=== PATIENT | female | born 1980 | race Caucasian/White ===

== ENCOUNTER 2016-10-12 18:26 | Emergency (ER) | payer OTHER ==
[~2016-10-12] VITALS: Ht 170.2 cm; Wt 58.0 kg
[~2016-10-12 18:26] MED LIST: BUTA1CAP PO; DIAZ5 PO; PERC5TAB12 PO
[2016-10-12 18:40] VITALS: BP 96/58; PULSE 80; RESP 18; TEMP 98.9; O2SAT 100
[2016-10-12 18:50] LABS: BLOOD, URINE NEG (NEG); GLUCOSE,URINE NEG (NEG); KETONE, URINE 15 mg/dL (NEG); PH, URINE 6.5 (5.0-8.5)
[2016-10-12] MEDS ORDERED: TRAM50TA PO (18:54)
--- NOTE | 2016-10-12 18:55 | PD ---
HPI Chief Complaint: Complaint Time Seen by Provider: 18:52 Travel History International Travel<30 days: No Contact w/Intl Traveler<30days: No Traveled to known affect area: No History of Present Illness HPI 36-year-old female is complaining that she is unable to void and she has severe pain when she does void. She has a history of urinary tract infections. She was treated for one on October 01. She thinks she took Macrobid. She takes tramadol for back and knee pain. She is now having severe pain in the pubic area. She says there is no chance of . She did have some right flank pain earlier. She says the discomfort she is having is quite severe. SHe did take some antibiotics that she had at home PFSH Past Medical History Hx Anticoagulant Therapy: No Anxiety: Yes Depression: Yes Cardiovascular Problems: No Chemotherapy: No Cerebrovascular Accident: No Diabetes: No Diminished Hearing: No Reproductive: Yes (OVARIAN CYSTS) Respiratory: No Immunizations Current: Yes Migraines: Yes Tetanus Vaccination: < 5 Years Influenza Vaccination: Yes ?: Not : 1 Para: 1 Dilation and Curettage (D&C): Yes Past Surgical History Section: Yes Cholecystectomy: Yes Hysterectomy: No Other Surgery: Yes (DOUBLE INGUINAL HERNIA REPAIRS) Social History Alcohol Use: No Tobacco Use: No (quit jul 30, 2013) Substance Use: No Allergies-Medications (Allergen,Severity, Reaction): Coded Allergies: Compazine (Verified Allergy, Severe, HEART PROBLEMS, 10/12/16) Codeine (Verified Allergy, Mild, 10/12/16) PT DENIES ALLERGY Darvocet-N 100 (Verified Allergy, Mild, RASH, 10/12/16) Penicillin (Verified Allergy, Mild, RASH, 10/12/16) Reglan (Verified Allergy, Mild, HEART PROBLEMS, 10/12/16) Sulfa (Verified Allergy, Mild, RASH, 10/12/16) Reported Meds & Prescriptions Reported Meds & Active Scripts Active Reported Tramadol (Tramadol HCl) 50 Mg Tab 100 Mg PO Q6H PRN Fioricet (Znhkshuwdn-Cxqpbwmtzgvcr-Vebtuevj) 50-300-40 Mg Cap 1-2 Cap PO Q6H PRN Valium (Diazepam) 5 Mg Tab 5 Mg PO TID PRN Review of Systems General / Constitutional: No: Fever, Chills Eyes: No: Diploplia HENT: No: Headaches, Vertigo Cardiovascular: No: Chest Pain or Discomfort Respiratory: No: Cough, Shortness of Breath Gastrointestinal: No: Nausea, Vomiting Genitourinary: Positive: Frequency, Dysuria, Pelvic Pain Musculoskeletal: Positive: Pain, No: Myalgias Skin: No Rash Neurologic: No: Weakness Hematologic/Lymphatic: No: Easy Bruising Physical Exam Narrative GENERAL: Well-developed female. She is complaining of quite severe pain in the pelvic area SKIN: Focused skin assessment warm/dry. HEAD: Atraumatic. Normocephalic. EYES: Pupils equal and round. No scleral icterus. No injection or drainage. ENT: No nasal bleeding or discharge. Mucous membranes pink and moist. NECK: Trachea midline. No JVD. CARDIOVASCULAR: Regular rate and rhythm. No murmur appreciated. RESPIRATORY: No accessory muscle use. Clear to auscultation. Breath sounds equal bilaterally. GASTROINTESTINAL: Abdomen soft, non-tender, nondistended. Hepatic and splenic margins not palpable. Pelvic: There is slight discharge is no pain with movement of the cervix. There are no adnexal masses felt MUSCULOSKELETAL: No obvious deformities. No clubbing. No cyanosis. No edema. NEUROLOGICAL: Awake and alert. No obvious cranial nerve deficits. Motor grossly within normal limits. Normal speech. PSYCHIATRIC: Appropriate mood and affect; insight and judgment normal. Data Data Last Documented VS Vital Signs Date Time Temp Pulse Resp B/P Pulse Ox O2 Delivery O2 Flow Rate FiO2 10/12/16 22:00 95 16 133/70 97 Room Air 10/12/16 18:40 98.9 Orders Urinalysis - C+S If Indicated (10/12/16 18:31) Ed Urine Pregnancytest Poc (10/12/16 18:31) Complete Blood Count With Diff (10/12/16 18:52) Basic Metabolic Panel (Bmp) (10/12/16 18:52) Ondansetron Inj (Zofran Inj) (10/12/16 19:00) Hydromorphone Pf Inj (Dilaudid Pf Inj) (10/12/16 19:00) Ceftriaxone Inj (Rocephin Inj) (10/12/16 19:00) Phenazopyridine (Pyridium) (10/12/16 19:00) Urine Culture (10/12/16 18:39) Hydromorphone Pf Inj (Dilaudid Pf Inj) (10/12/16 20:30) Ct Abd/Pel W/O Iv Contrast (10/12/16 20:23) Gc And Chlamydia Pcr (10/12/16 20:49) Wet Prep Profile (10/12/16 20:49) Ketorolac Inj (Toradol Inj) (10/12/16 21:45) Labs Laboratory Tests Test 10/12/16 10/12/16 10/12/16 18:39 19:05 20:30 Urine Color BROWN Urine Turbidity CLEAR Urine pH 6.5 Urine Specific [place] 1.031 Urine Protein 30 mg/dL Urine Glucose (UA) NEG mg/dL Urine Ketones 15 mg/dL Urine Occult Blood NEG Urine Nitrite POS Urine Bilirubin NEG Urine Leukocyte Esterase NEG Urine WBC 0-2 /hpf Urine Squamous Epithelial 0-5 /hpf Cells Urine Calcium Oxalate Crystals MOD /hpf Urine Bacteria FEW /hpf Urine Mucus MOD /lpf Microscopic Urinalysis Comment CULTURE INDICATED White Blood Count 6.7 TH/MM3 Red Blood Count 4.76 MIL/MM3 Hemoglobin 14.0 GM/DL Hematocrit 41.6 % Mean Corpuscular Volume 87.2 FL Mean Corpuscular Hemoglobin 29.4 PG Mean Corpuscular Hemoglobin 33.7 % Concent Red Cell Distribution Width 12.4 % Platelet Count 197 TH/MM3 Mean Platelet Volume 8.3 FL Neutrophils (%) (Auto) 53.9 % Lymphocytes (%) (Auto) 35.9 % Monocytes (%) (Auto) 9.2 % Eosinophils (%) (Auto) 0.5 % Basophils (%) (Auto) 0.5 % Neutrophils # (Auto) 3.7 TH/MM3 Lymphocytes # (Auto) 2.4 TH/MM3 Monocytes # (Auto) 0.6 TH/MM3 Eosinophils # (Auto) 0.0 TH/MM3 Basophils # (Auto) 0.0 TH/MM3 CBC Comment DIFF FINAL Differential Comment Sodium Level 143 MEQ/L Potassium Level 3.5 MEQ/L Chloride Level 106 MEQ/L Carbon Dioxide Level 28.8 MEQ/L Anion Gap 8 MEQ/L Blood Urea Nitrogen 8 MG/DL Creatinine 0.63 MG/DL Estimat Glomerular Filtration 108 ML/MIN Rate Random Glucose 79 MG/DL Calcium Level 8.9 MG/DL Clue Cells (Wet Prep) NONE SEEN Vaginal Trichomonas (Wet Prep) NONE SEEN Vaginal Yeast (Wet Prep) NONE SEEN MDM Medical Decision Making Medical Screen Exam Complete: Yes Emergency Medical Condition: Yes Medical Record Reviewed: Yes Differential Diagnosis Differential includes UTI, urethral syndrome, renal colic, ovarian cyst Narrative Course Pelvic exam is fairly benign. CT scan does not show an etiology for the pain. I was concerned she might have a kidney stone as she did have calcium oxalate crystals in a lot of pain. She had some sediment in the urine and may have a partially treated UTI or acute urethral syndrome. I will prescribe antibiotics and pain medication. Diagnosis Primary Impression: acute urethral syndromE Scripts Phenazopyridine (Pyridium)200 Mg [id number] Mg PO Q8H PRN (DYSURIA) #20 TAB Ref 0 Prov:Mook Beltrán MD 10/12/16 Oxycodone-Acetaminophen (Percocet)7.5-325 mg Tab1 Tab PO Q4H PRN (PAIN) #20 TAB Ref 0 Prov:Mook Beltrán MD 10/12/16 Doxycycline Hyclate 100 Mg [id number] Mg PO BID #14 CAP Prov:Mook Beltrán MD 10/12/16 Disposition: 01 DISCHARGE HOME Condition: Stable Mook Beltrán MD Oct 12, 2016 18:55
[2016-10-12 18:57] LABS: NITRITE,URINE POS (NEG)
[2016-10-12 18:58] LABS: URINE COLOR BROWN (YELLW/STRAW)
[2016-10-12 18:59] LABS: MUCUS URINE MOD /lpf (OCC)
[2016-10-12 19:00] LABS: BACTERIA, URINE FEW /hpf; CALCIUM OXALATE CRYSTALS,URINE MOD /hpf; SQUAMOUS EPITHELIAL CELL URINE 0-5 /hpf (0-5)
[2016-10-12] MEDS ORDERED: ONDANSETRON HCL 4 MG/2 ML VIAL IV PUSH ONE (19:00)
[2016-10-12] MEDS ORDERED: HYDROmorphone HCL PF 1 MG/ML VIAL IV PUSH ONE ×2 (19:00→20:30)
[2016-10-12] MEDS ORDERED: PHENAZOPYRIDINE HCL 200 MG TAB PO ONE (19:00)
[2016-10-12] MEDS ORDERED: cefTRIAXone INJ 1,000 MG in SODIUM CHLORIDE 0.9% INJ 100 ML IV ONE (19:00)
[2016-10-12 19:01] LABS: COMMENT (UR) CULTURE INDICATED; CULTURE IF INDICATED CULTURE INDICATED; WBC, URINE 0-2 /hpf (0-5)
[2016-10-12 19:49] LABS: POTASSIUM 3.5 MEQ/L (3.5-5.1)
[2016-10-12 19:53] LABS: BICARBONATE 28.8 MEQ/L (21.0-32.0)
[2016-10-12 20:05] LABS: AUTOMATED NEUTROPHIL # 3.7 TH/MM3 (1.8-7.7); BASOPHIL % 0.5 % (0.0-2.0); EOSINOPHIL % 0.5 % (0.0-4.0); HEMATOCRIT 41.6 % (35.0-46.0); HEMO FLAGS DIFF FINAL; LYMPH % 35.9 % (9.0-44.0); LYMPHOCYTE # 2.4 TH/MM3 (1.0-4.8); MEAN CELL VOLUME 87.2 FL (80.0-100.0); MEAN CORPUSCULAR HEMOGLOBIN 29.4 PG (27.0-34.0); MEAN CORPUSCULAR HGB CONC 33.7 % (32.0-36.0); MONO % 9.2 % (0.0-8.0); NEUT % 53.9 % (16.0-70.0); PLATELET COUNT 197 TH/MM3 (150-450); RED BLOOD COUNT 4.76 MIL/MM3 (4.00-5.30); RED CELL DISTRIBUTION WIDTH 12.4 % (11.6-17.2); WHITE BLOOD COUNT 6.7 TH/MM3 (4.0-11.0)
[2016-10-12] MEDS ORDERED: KETOROLAC TROMETHAMINE 30 MG/ML (IVP) VIAL IV PUSH ONE (21:45)
[2016-10-12 22:00] VITALS: BP 133/70; PULSE 95; RESP 16; O2SAT 97
--- NOTE | 2016-10-12 22:02 | RADHPO ---
EXAM DATE/TIME: 10/12/2016 21:19 [facility] COMPARISON: No previous studies available for comparison. INDICATIONS : Right flank pain. ORAL CONTRAST: No oral contrast ingested. RADIATION DOSE: 7.46 CTDIvol (mGy) MEDICAL HISTORY : None SURGICAL HISTORY : Cholecystectomy. section.Inguinal hernia repair. ENCOUNTER: Initial ACUITY: 2 weeks PAIN SCALE: 10/10 LOCATION: Right flank Lower abdomen. TECHNIQUE: Volumetric scanning of the abdomen and pelvis was performed. Using automated exposure control and ad justment of the mA and/or kV according to patient size, radiation dose was kept as low as reasonably achievable to obtain optimal diagnostic quality images. FINDINGS: LOWER LUNGS: The visualized lower lungs are clear. LIVER: Homogeneous density without lesion. There is no dilation of the biliary tree. Hemoclips in the port a from prior cholecystectomy. SPLEEN: Normal size without lesion. PANCREAS: Within normal limits. KIDNEYS: Normal in size and shape. There is no mass, stone, or hydronephrosis. ADRENAL GLANDS: Within normal limits. VASCULAR: There is no aortic aneurysm. BOWEL/MESENTERY: The stomach, small bowel, and colon demonstrate no acute abnormality. There is no free intraperitone al air or fluid. ABDOMINAL WALL: Ventral hernia repair right lower quadrant with mesh in place. RETROPERITONEUM: There is no lymphadenopathy. BLADDER: No wall thickening or mass. REPRODUCTIVE: Within normal limits. INGUINAL: There is no lymphadenopathy or hernia. MUSCULOSKELETAL: Within normal limits for patient age. CONCLUSION: Negative noncontrast CT and/pelvis. No evidence of renal stones or hydronephrosis. Miles Steel MD on October 12, 2016 at 21:58 Board Certified Radiologist. This report was verified electronically.
[2016-10-12] MEDS ORDERED: DOXY100C PO (22:19)
[2016-10-12] MEDS ORDERED: PERC7.5T13 PO (22:19)
[2016-10-12] MEDS ORDERED: PYRI200T4 PO (22:19)
[2016-10-12 22:33] VITALS: RESP 16
[2016-10-13 11:27] LABS: CHLAMYDIA PCR NOT DETECTED (NOT DETECT); NEISSERIA PCR NOT DETECTED (NOT DETECT)
== END 2016-10-12 22:36 | disposition home or self-care (01) ==
LOC: PHED 18:26
DX: N34.3 Urethral syndrome, unspecified (principal); F41.9 Anxiety disorder, unspecified; F32.9 Major depressive disorder, single episode, unspecified; Z87.891 Personal history of nicotine dependence
CPT/HCPCS: 74176; 80048; 81001; 84703; 85025; 87086; 87210; 87491; 87591; 96365; 96375; 96376; 99284; J0696; J1170; J1885; J2405

== ENCOUNTER 2016-11-30 15:00 | Emergency (ER) | payer OTHER ==
[~2016-11-30] VITALS: Ht 170.2 cm; Wt 58.0 kg
[~2016-11-30 15:00] MED LIST changes: +DOXY100C PO; -PERC5TAB12 PO; +PERC7.5T13 PO; +PYRI200T4 PO; +TRAM50TA PO
[2016-11-30 15:02] VITALS: BP 128/78; PULSE 110; RESP 19; TEMP 98.8; O2SAT 100
[2016-11-30] MEDS ORDERED: GABA300C5 PO (15:19)
[2016-11-30] MEDS ORDERED: ZOFR4TAB3 SL (15:19)
[2016-11-30] MEDS ORDERED: CYCL1TAB29 PO (15:19)
[2016-11-30] MEDS ORDERED: CARI1CAP PO (15:19)
[2016-11-30] MEDS ORDERED: AMIT25TA9 PO (15:19)
[2016-11-30] MEDS ORDERED: SODIUM CHLORIDE 0.9% FLUSH 10 ML FLUSH IVF PRN (15:45)
--- NOTE | 2016-11-30 15:48 | PD ---
HPI Chief Complaint: Anxiety Time Seen by Provider: 15:48 Travel History International Travel<30 days: No Contact w/Intl Traveler<30days: No Traveled to known affect area: No History of Present Illness HPI 36-year-old female with a history of chronic back pain, chronic opiate use, anxiety, depression, bipolar disorder presents to the emergency department for evaluation of auditory hallucinations. The patient states that she stopped using opiates altogether one week ago. States that she has previously been on Lortab and Percocet which she stopped 3 months ago. States that she was still on tramadol about 8-10 tablets daily until one week ago. States that she does take Valium occasionally at home but has had only about 4 times over the past week. States that she did not want to be on chronic narcotic medications any more so she chose to take herself off of these medications and had done a lot of research on how to avoid withdrawal symptoms. States she has been taking many supplements over the last week and has also started a new medication for bipolar disorder over the last week. States that she does have intermittent episodes of heart palpitations, restless legs, lightheadedness. States she's had a few episodes of memory loss lasting anywhere from a few minutes to 20 minutes. She states she is hearing the voices of her father and grandmother, which she has heard before but feels as though this is different. She denies any recreational drug use or alcohol use. She denies fever, chills, nausea, vomiting, abdominal pain, chest pain, shortness of breath. She has had diarrhea today but has not had diarrhea previously. Denies suicidal or homicidal ideations. Denies . No other complaints. PFSH Past Medical History Hx Anticoagulant Therapy: No Anxiety: Yes Depression: Yes Cardiovascular Problems: No Chemotherapy: No Cerebrovascular Accident: No Diabetes: No Diminished Hearing: No Reproductive: Yes (OVARIAN CYSTS) Respiratory: No Immunizations Current: Yes Migraines: Yes ?: Not LMP: irreg, was on depo : 1 Para: 1 Dilation and Curettage (D&C): Yes Past Surgical History Section: Yes Cholecystectomy: Yes Hysterectomy: No Other Surgery: Yes (DOUBLE INGUINAL HERNIA REPAIRS) Social History Alcohol Use: No Tobacco Use: No (quit jul 30, 2013) Substance Use: Yes (marijuana) Allergies-Medications (Allergen,Severity, Reaction): Coded Allergies: Compazine (Verified Allergy, Severe, HEART PROBLEMS, 11/30/16) Penicillin (Verified Allergy, Mild, RASH, 11/30/16) Reglan (Verified Allergy, Mild, HEART PROBLEMS, 11/30/16) Sulfa (Verified Allergy, Mild, RASH, 11/30/16) Reported Meds & Prescriptions Reported Meds & Active Scripts Active Reported Amitriptyline (Amitriptyline HCl) 25 Mg Tab 25 Mg PO HS Zofran Odt (Ondansetron Odt) 4 Mg Tab Mg SL Q12HR PRN Gabapentin 300 Mg Cap 300 Mg PO BID Flexeril (Cyclobenzaprine HCl) 10 Mg Tab 10 Mg PO BID Vraylar (Cariprazine) 1.5 Mg Cap 1.5 Mg PO HS Fioricet (Zvtczdinpp-Yypbqyhvbgsfx-Ikyjiuzs) 50-300-40 Mg Cap 1-2 Cap PO Q6H PRN Valium (Diazepam) 5 Mg Tab 5 Mg PO TID PRN Review of Systems Except as stated in HPI: all other systems reviewed are Neg Physical Exam Narrative GENERAL: Well-nourished and well-developed female patient in no acute distress who is nontoxic appearing. SKIN: Warm and dry. HEAD: Normocephalic and atraumatic. EYES: No injection, drainage, or hyphema noted. PERRLA. EOMI. ENT: No nasal drainage noted. Oropharynx is clear. NECK: Supple and the trachea is midline. CARDIOVASCULAR: Regular rate and rhythm. RESPIRATORY: Breath sounds are equal bilaterally with no accessory muscle use, wheezing, rhonchi, or crackles. GASTROINTESTINAL: Abdomen is soft, non-tender, and nondistended. MUSCULOSKELETAL: No obvious deformities, swelling, cyanosis, or ecchymosis is present throughout the upper and lower extremities. Patient has full range of motion without any signs of neurovascular compromise. NEUROLOGICAL: Awake, alert, and oriented. Normal speech and gait. Cranial nerves are grossly intact. Data Data Last Documented VS Vital Signs Date Time Temp Pulse Resp B/P Pulse Ox O2 Delivery O2 Flow Rate FiO2 11/30/16 15:02 98.8 110 19 128/78 100 Orders Complete Blood Count With Diff (11/30/16 15:44) Comprehensive Metabolic Panel (11/30/16 15:44) Magnesium (Mg) (11/30/16 15:44) Iv Access Insert/Monitor (11/30/16 15:44) Electrocardiogram (11/30/16 15:44) Ecg Monitoring (11/30/16 15:44) Oximetry (11/30/16 15:44) Sodium Chloride 0.9% Flush (Ns Flush) (11/30/16 15:45) Thyroid Stimulating Hormone (11/30/16 15:44) Drug Screen, Random Urine (11/30/16 15:44) Ed Urine Pregnancytest Poc (11/30/16 15:52) Clonidine (Catapres) (11/30/16 16:30) Labs Laboratory Tests Test 11/30/16 11/30/16 15:55 16:05 White Blood Count 8.3 TH/MM3 Red Blood Count 4.75 MIL/MM3 Hemoglobin 13.8 GM/DL Hematocrit 41.7 % Mean Corpuscular Volume 87.8 FL Mean Corpuscular Hemoglobin 29.2 PG Mean Corpuscular Hemoglobin 33.2 % Concent Red Cell Distribution Width 12.9 % Platelet Count 199 TH/MM3 Mean Platelet Volume 8.0 FL Neutrophils (%) (Auto) 63.4 % Lymphocytes (%) (Auto) 27.0 % Monocytes (%) (Auto) 8.3 % Eosinophils (%) (Auto) 1.0 % Basophils (%) (Auto) 0.3 % Neutrophils # (Auto) 5.2 TH/MM3 Lymphocytes # (Auto) 2.2 TH/MM3 Monocytes # (Auto) 0.7 TH/MM3 Eosinophils # (Auto) 0.1 TH/MM3 Basophils # (Auto) 0.0 TH/MM3 CBC Comment DIFF FINAL Differential Comment Sodium Level 141 MEQ/L Potassium Level 4.3 MEQ/L Chloride Level 105 MEQ/L Carbon Dioxide Level 30.1 MEQ/L Anion Gap 6 MEQ/L Blood Urea Nitrogen 9 MG/DL Creatinine 0.62 MG/DL Estimat Glomerular Filtration 110 ML/MIN Rate Random Glucose 93 MG/DL Calcium Level 9.3 MG/DL Magnesium Level 2.3 MG/DL Total Bilirubin 0.3 MG/DL Aspartate Amino Transf 16 U/L (AST/SGOT) Alanine Aminotransferase 25 U/L (ALT/SGPT) Alkaline Phosphatase 69 U/L Total Protein 7.2 GM/DL Albumin 4.1 GM/DL Thyroid Stimulating Hormone 0.417 uIU/ML 3rd Gen Urine Opiates Screen NEG Urine Barbiturates Screen NEG Urine Amphetamines Screen NEG Urine Benzodiazepines Screen POS Urine Cocaine Screen NEG Urine Cannabinoids Screen POS MDM Medical Decision Making Medical Screen Exam Complete: Yes Emergency Medical Condition: Yes Differential Diagnosis Anxiety versus opiate withdrawal versus electrolyte abnormality versus other Narrative Course 36-year-old female with a history of opiate dependence presents to the emergency department one week after cessation of opiates with complaints of anxiety. Patient is afebrile. She is initially tachycardic with heart rate of 110 bpm. Otherwise vital signs within normal limits. Physical examination is unremarkable. The patient is on a bag full of supplements that she started last week. We'll check lab work to make sure there is no abnormalities. CBC, CMP, TSH are unremarkable. Urine tox positive for benzodiazepines and cannabinoids. I discussed all findings with the patient. I did offer her a psych screening however patient states that she would like to follow up as an outpatient with her psychiatrist. She has no suicidal or homicidal ideations and is not a harm to herself or anyone else therefore I think this is reasonable. Patient is stable for discharge. I discussed the case with my attending physician Dr. Velázquez who is aware of the patients history, physical examination findings, and treatment plan. Diagnosis Primary Impression: Anxiety Referrals: [facility] Patient Instructions: Anxiety (ED), General Instructions Additional Instructions: Follow-up with your Primary Care Physician. Return to the ED for any acute worsening of symptoms. Med/Other Pt SpecificInfo: No Change to Meds Disposition: 01 DISCHARGE HOME Condition: Stable Akiko Cervantes November 30, 2016 15:48
[2016-11-30 16:17] LABS: AUTOMATED NEUTROPHIL # 5.2 TH/MM3 (1.8-7.7); BASOPHIL % 0.3 % (0.0-2.0); EOSINOPHIL # 0.1 TH/MM3 (0-0.4); HEMATOCRIT 41.7 % (35.0-46.0); HEMO FLAGS DIFF FINAL; LYMPHOCYTE # 2.2 TH/MM3 (1.0-4.8); MEAN CELL VOLUME 87.8 FL (80.0-100.0); MEAN CORPUSCULAR HEMOGLOBIN 29.2 PG (27.0-34.0); MEAN CORPUSCULAR HGB CONC 33.2 % (32.0-36.0); MONO % 8.3 % (0.0-8.0); NEUT % 63.4 % (16.0-70.0); PLATELET COUNT 199 TH/MM3 (150-450); RED BLOOD COUNT 4.75 MIL/MM3 (4.00-5.30); RED CELL DISTRIBUTION WIDTH 12.9 % (11.6-17.2); WHITE BLOOD COUNT 8.3 TH/MM3 (4.0-11.0)
[2016-11-30] MEDS ORDERED: cloNIDine HCL 0.1 MG TAB PO ONE (16:30)
[2016-11-30 16:33] LABS: AMPHETAMINE, URINE NEG (NEG); BARBITURATES, URINE NEG (NEG); COCAINE, URINE NEG (NEG)
[2016-11-30 16:37] LABS: ALT (GPT) 25 U/L (10-53); ANION GAP 6 MEQ/L (5-15); AST (GOT) 16 U/L (15-37); BICARBONATE 30.1 MEQ/L (21.0-32.0); BLOOD UREA NITROGEN 9 MG/DL (7-18); CHLORIDE 105 MEQ/L (98-107); GLOMERULAR FILTRATION RATE 110 ML/MIN (>89); MAGNESIUM 2.3 MG/DL (1.5-2.5); POTASSIUM 4.3 MEQ/L (3.5-5.1); SODIUM (NA) 141 MEQ/L (136-145)
[2016-11-30 16:47] LABS: ALKALINE PHOSPHATASE 69 U/L (45-117); TOTAL BILIRUBIN ADULT 0.3 MG/DL (0.2-1.0)
--- NOTE | 2016-11-30 19:46 | EKG ---
Date Performed: 11/30/2016 Time Performed: 15:58:43 PTAGE: 36 years EKG: Sinus rhythm NORMAL ECG PREVIOUS TRACING : 07/23/2015 15.02 Compared to prior tracing no significant change DOCTOR: Gauri Stout Interpretating Date/Time 11/30/2016 19:46:06
== END 2016-11-30 17:35 | disposition home or self-care (01) ==
LOC: NEPD 15:00
DX: F41.8 Other specified anxiety disorders (principal); R00.2 Palpitations; F31.9 Bipolar disorder, unspecified; F11.20 Opioid dependence, uncomplicated; F12.10 Cannabis abuse, uncomplicated; Z87.891 Personal history of nicotine dependence
CPT/HCPCS: 80053; 80307; 83735; 84443; 84703; 85025; 93005; 99284

== ENCOUNTER 2017-01-19 18:39 | Emergency (ER) | payer OTHER ==
[~2017-01-19] VITALS: Ht 170.2 cm; Wt 55.0 kg
[~2017-01-19 18:39] MED LIST changes: +AMIT25TA9 PO; +CARI1CAP PO; +CYCL1TAB29 PO; -DOXY100C PO; +GABA300C5 PO; -PERC7.5T13 PO; -PYRI200T4 PO; -TRAM50TA PO; +ZOFR4TAB3 SL
[2017-01-19 18:41] VITALS: BP 128/78; PULSE 90; RESP 20; TEMP 98.3; O2SAT 99
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
[2017-01-19] MEDS ORDERED: TRAM50TA PO (19:10)
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
[2017-01-19] MEDS ORDERED: CYCL1TAB29 PO (21:42)
[2017-01-19] MEDS ORDERED: HYDR-3533 PO (21:42)
[2017-01-19] MEDS ORDERED: DICL75TA PO (21:42)
== END 2017-01-19 22:00 | disposition home or self-care (01) ==
LOC: NEPK 18:39
DX: S06.0X1A Concussion with loss of consciousness of 30 minutes or less, initial encounter (principal); S20.219A Contusion of unspecified front wall of thorax, initial encounter; M54.2 Cervicalgia; M54.9 Dorsalgia, unspecified; F41.9 Anxiety disorder, unspecified; F32.9 Major depressive disorder, single episode, unspecified; Z79.899 Other long term (current) drug therapy; Z88.0 Allergy status to penicillin; V49.60XA Unspecified car occupant injured in collision with unspecified motor vehicles in traffic accident, initial encounter
CPT/HCPCS: 70450; 71020; 99284

== ENCOUNTER → 2017-01-31 | Day surgery (SDC) | payer OTHER ==
[~2017-01-31] MED LIST changes: -AMIT25TA9 PO; -CARI1CAP PO; +DICL75TA PO; -GABA300C5 PO; +HYDR-3533 PO; +KETOROLAC TROMETHAMINE 30 MG/ML (IVP) VIAL IV PUSH ONE; +LACTATED RINGER'S 1000 ML INJ 1,000 ML ONE; +MIDAZOLAM HCL 2 MG/2 ML VIAL ONE; +MORPHINE SULFATE 4 MG/ML INJ ONE; +PROPOFOL 200 MG/20 ML AMP IV ONE; +TRAM50TA PO; -ZOFR4TAB3 SL; +ceFAZolin INJ 1,000 MG VIAL ONE; +oxyCODONE/ACETAMINOPHEN 5 MG/325 MG TAB ONE
--- NOTE | 2017-02-02 08:01 | TN ---
cc: MILES NICK DATE OF SURGERY 01/31/2017 PREOPERATIVE DIAGNOSES 1. Menorrhagia. 2. Desires permanent sterility. POSTOPERATIVE DIAGNOSES 1. Menorrhagia. 2. Desires permanent sterility. PROCEDURE 1. Laparoscopic bilateral tubal ligation with Falope rings. 2. NovaSure endometrial ablation. 3. Hysteroscopy. SURGEON MD Sandoval ANESTHESIA General. ESTIMATED BLOOD LOSS 30 cc. COMPLICATIONS None. FINDINGS The patient had a uterus that sounded to 8 cm. It was grossly normal in size, shape and position. The fallopian tubes and ovaries were also grossly normal. There was some omental scarring from her prior inguinal hernia repair on the right side. The upper abdominal organs were normal as far as could be visualized. DESCRIPTION OF PROCEDURE The patient was brought to the operating room and following general anesthesia was placed in dorsal lithotomy position. Her vagina, abdomen and perineum were prepped and draped. A HUMI catheter was placed in the uterus and a Neal catheter into the bladder. A 1-cm subumbilical skin incision was made. The Veress needle was inserted and 3 liters of CO2 was infused into the abdomen. The Veress needle was then removed and a laparoscope was placed without difficulty. A second puncture site was created under direct visualization. The findings were as noted above. The Falope ring applicator was loaded and Falope rings were easily applied to the isthmic portion of each tube. No bleeding occurred. Good segments of tube were noted within each ring. Photos were taken. With no other significant pathology present, all instruments removed the CO2 gas was allowed to escape. The incisions were then closed with subcuticular #4-0 Vicryl stitch. We then removed the HUMI catheter from the uterus and dilated the cervix to allow passage of the NovaSure device. The device was placed and length and width settings were made. Approximately 70 to 80 second ablation was performed at 76 perez power. The device was then removed and hysteroscopy was performed. Good ablation effect was noted throughout the entire endometrial cavity. The hysteroscope was removed and the patient taken to the recovery room in good condition with all counts correct. She will be discharged home when stable and alert to be followed up in one week in our office. Discharge medication is Percocet. She was given instructions on physical activity and instructed to resume a regular diet as tolerated. Miles Nick MD TGS/SSB /8:43 AM /7:49 AM
== END | disposition home or self-care (01) ==
LOC: ESDC 06:49
PROVIDERS: ATTEND Obstetrics & Gynecology
DX: N92.0 Excessive and frequent menstruation with regular cycle (principal); Z30.2 Encounter for sterilization
CPT/HCPCS: 00851; 00952; 58563; 58671; J0690; J1885; J2250; J2270; J3010; J7120